=== PATIENT | male | born 1995 | race Caucasian/White ===

== ENCOUNTER 2016-09-13 12:09 | Emergency (ER) | payer OTHER ==
[2016-09-13] MEDS ORDERED: NS 1,000 ML IV ONE (12:28)
[2016-09-13] MEDS ORDERED: DEXAMETHASONE 10 MG/ML VIAL IVP ONE (12:29)
--- NOTE | 2016-09-13 12:34 | EDPHY ---
HPI/HX/ROS/PE/MDM Narrative: CHIEF COMPLAINT: Sore throat HPI: This patient is a 21 year old man presenting with a five day history of acute sore throat. Pain is moderate in severity, he has been taking ibuprofen every 6 hours, with no improvement. It is associated with hoarse voice and painful swallowing. He was traveling in [place] this week and did not see a medical provider until today. He went to [facility] today for a strep test and was referred to the emergency department due to concern for peritonsillar abscess. He is handling secretions appropriately. REVIEW OF SYSTEMS: Aside from elements discussed in the HPI, a comprehensive 10-point review of systems was reviewed and is negative. PMH: Denies SOCIAL HISTORY: [employer] student, non-smoker PHYSICAL EXAM: General:Patient is alert, in no acute distress. ENT:Eyes are normal to inspection. Bilateral tonsillomegaly, right twice the size of the left, with patchy white exudate. Neck: Normal inspection. Full range of motion. Respiratory:No respiratory distress. Breath sounds normal bilaterally. Cardiovascular: Regular rate and rhythm. Strong peripheral pulses. Normal cap refill. Abdomen:The abdomen is nontender to palpation. There are no peritoneal signs. There are normal bowel sounds. Back: Normal to inspection. No tenderness to palpation. Skin: Normal color. No rash. Warm and dry. Extremities: Normal appearance. Full range of motion. Neuro: Oriented x3. Normal motor function. Normal sensory function. ED Course: ENT paged for questionable peritonsillar abscess. An IV has been established. He has received 1L IV normal saline and 10mg IV Decadron. [address] Pratt, ENT. She will consult on the patient. 1340 Dr. Pratt is in the ED and evaluated the patient. She doubts peritonsillar abscess. She requests prescription for amoxicillin, Medrol dose pack, and will see the patient in the office on Thursday - Data Points Medications Given: Discontinued Medications Dexamethasone (Decadron Injection) 10 mg IVP EDNOW ONE Stop: 09/13/16 12:30 Last Admin: 09/13/16 13:03 Dose: 10 mg Sodium Chloride (Ns) 1,000 mls @ 0 mls/hr IV ONCE ONE PRN Reason: Wide Open Stop: 09/13/16 12:29 Last Admin: 09/13/16 13:03 Dose: 1,000 mls Clindamycin Phosphate/Dextrose (Cleocin 600 Mg (Premix)) 50 mls @ 100 mls/hr IV EDNOW ONE PRN Reason: Protocol Stop: 09/13/16 13:04 Last Admin: 09/13/16 13:03 Dose: 50 mls General Time Seen by Provider: 09/13/16 12:25 Initial Vital Signs: Initial Vital Signs Temperature (C) 36.4 C 09/13/16 12:10 Heart Rate 78 09/13/16 12:10 Respiratory Rate 16 09/13/16 12:10 Blood Pressure 148/79 H 09/13/16 12:10 O2 Sat (%) 98 09/13/16 12:10 O2 Delivery Mode Room Air Allergies/Adverse Reactions: No Known Allergies Allergy (Verified 09/13/16 12:13) Home Medications: Medication Instructions Recorded Clindamycin Phos/Benzoyl Perox 3.5 gm TP 09/13/16 [Onexton 1.2%-3.75% Gel] MINOCYCLINE HCL 75 mg PO 09/13/16 TRETINOIN [RETINOIC ACID] 5 gm MC 09/13/16 Departure - Departure Disposition: Home, Routine, Self-Care Clinical Impression: Tonsillitis Condition: Good Instructions: Tonsillitis (ED) Additional Instructions: Follow-up with Dr. Pratt on Thursday for re-check. Take the Amoxicillin and Medrol dose pack as prescribed. Return to the Emergency Department for high fever, difficulty swallowing, difficulty tolerating liquids, neck pain or stiffness, shortness of breath or other concerns. Use Tylenol and/or ibuprofen as directed for pain. Drink plenty of fluids. Referrals: FARNAZ SCHULZ [Other] - As per Instructions Kristy Pratt MD [Medical Doctor] - As per Instructions Report Scribed for: Sage Ortiz Report Scribed by: Patricia Martinez Date of Report: 09/13/16 Time of Report: 12:35 Physician Review and Approval Statement: Portions of this note were transcribed by an ED scribe. I personally performed the history, physical exam, and medical decision making; and confirm the accuracy of the information in the transcribed note.
[2016-09-13] MEDS ORDERED: CLINDAMYCIN 600 MG/DEXTROSE 50 ML IV ONE (12:35)
[2016-09-13 14:18] VITALS: BP 132/66; PULSE 74; RESP 17; TEMP 99; O2SAT 96
--- NOTE | 2016-09-13 15:01 | GCON ---
[f rep st] CONSULTATION DATE OF CONSULTATION: 09/13/2016 CHIEF COMPLAINT: Sore throat. HISTORY OF PRESENT ILLNESS: This is a pleasant 21-year-old man who lives in [place] but goes to [facility] here and recently came back from a trip. He states he has had a sore throat since Thursday that h as progressively gotten worse until today. It was so bad that he went to [facility], and he was ref erred over by them to the ER here. He has not had an objective fever but has had some chills. He c omplains of odynophagia but no dysphagia and no shortness of breath. He does state the right side h urts worse than the left. He has not had any antibiotics but has just been taking Motrin and Tyleno l every 6 hours. I was called for the possibility of a peritonsillar abscess. PAST MEDICAL HISTORY: Negative. PAST SURGICAL HISTORY: Positive for left arm surgery. SOCIAL HISTORY: He is a nonsmoker. REVIEW OF SYSTEMS: Positive for above and negative for the other 10-point review of systems. PHYSICAL EXAM: VITAL SIGNS: He is afebrile,. Vital signs stable. He is satting well on room air. GENERAL: He is awake and alert, in no apparent distress. HEENT: Pupils are equal, round, and re active to light. Extraocular movements are intact. Ear canals have some excessive cerumen bilatera lly, and I am not able to see the eardrums. Nose shows no significant secretions or drainage. Oral cavity and oropharynx show tonsils of 2 to 3+ on the right and 1 to 2+ on the left. He does have s ome exudate bilaterally. He has some very minimal edema of the anterior pillar on the right, but th ere is no palatal fullness or swelling and no uvular deviation. He has no hot potato voice. There is no tenderness or fluctuance noted on palpation of the palate. NECK: No overt lymphadenopathy or masses. NEUROLOGIC: Cranial nerves 2-12 are grossly intact. RESPIRATORY: He is breathing well o n room air with no stridor or wheeze. ASSESSMENT/PLAN: This is a pleasant 21-year-old white male who has an acute tonsillitis. I do not think he has a peritonsillar abscess, or at least one that would be large enough to try to drain at this point. He has not been on antibiotics, so I think treating him with Augmentin would be reasona ble. He was given clindamycin and 10 of Decadron in the ER. It would also be reasonable to give hi m a Medrol pack to start tomorrow. I will give him my card, and he can come see me on Thursday if he is not improved, and he was given recommendations about worsening and coming back to the ER over the weekend if it does worsen or he gets shortness of breath or significant dysphagia. He understands and agrees and is happy with the plan. /[id number]/MODL
== END 2016-09-13 14:18 | disposition home or self-care (01) ==
DX: J03.90 Acute tonsillitis, unspecified (principal)
CPT/HCPCS: 96365